=== PATIENT | male | born 1950 | race Caucasian/White ===

== ENCOUNTER → 2024-03-25 | Outpatient (CLI) | payer MEDICARE ==
[2024-03-25 10:56] LABS: African American GFR (CKD) 53 (>60 ml/min/1.73 sqM); Blood Urea Nitrogen 24 mg/dL (9-20); Non-African American GFR(CKD) 46 (>60 ml/min/1.73 sqM)
--- NOTE | 2024-03-25 11:21 | CT ---
EXAMINATION TYPE: CT chest w con CT DLP: 283.6 mGycm, Automated exposure control for dose reduction was used. DATE OF EXAM: 03/25/2024 11:14 AM COMPARISON: CT lung dose 11/12/2023. CLINICAL INDICATION:Male, 73 years old with history of R91.1 SOLITARY PULMONARY NODULE; PHH, SOLITARY PULMONARY NODULE TECHNIQUE: Multiple axial images were obtained through the chest following the administration of 100 cc of Isovue 300. . Coronal and sagittal reformats reviewed. FINDINGS: LUNGS/ PLEURA: No pleural effusion or pneumothorax. Bilateral upper lobe paraseptal emphysematous cj nges. Bibasilar dependent atelectasis. Right lower lobe linear atelectasis. Minimal biapical pleural -parenchymal scarring. Stable lateral right upper lobe 3.5 mm pulmonary nodule (series 4, image 16). Stable left lower lobe posterior 7.4 mm pulmonary nodule (series 4, image 49). No new or enlarging pu lmonary nodules. AIRWAY: Patent and unremarkable.. HEART: Size within normal limits. No pericardial effusion. MEDIASTINUM: No evidence of adenopathy. VASCULATURE: No aortic aneurysm. MUSCULOSKELETAL: No acute osseous abnormalities. Multilevel anterior osteophytosis. SOFT TISSUES/LYMPH NODES: Bilateral gynecomastia. LOWER NECK: No significant findings. UPPER ABDOMEN: No significant findings. IMPRESSION: Stable couple pulmonary nodules with largest measuring up to 7.4 mm. No new or enlarging pulmonary no dules. Follow-up CT chest in 6-12 months is recommended.
== END | disposition home or self-care (01) ==
LOC: RADCTMAIN 10:02
PROVIDERS: ATTEND Internal Medicine Critical Care Medicine
DX: R91.8 Other nonspecific abnormal finding of lung field (principal); R91.1 Solitary pulmonary nodule
CPT/HCPCS: 82565; 84520; 71260; 36415; Q9967

== ENCOUNTER → 2024-12-08 | Outpatient (CLI) | payer MEDICARE ==
[2024-12-08 13:10] LABS: African American GFR (CKD) 46 (>60 ml/min/1.73 sqM); Blood Urea Nitrogen 29 mg/dL (9-20); Non-African American GFR(CKD) 40 (>60 ml/min/1.73 sqM)
--- NOTE | 2024-12-08 14:07 | CT ---
EXAMINATION TYPE: CT chest w con CT DLP: 269.7 mGycm, Automated exposure control for dose reduction was used. DATE OF EXAM: 12/08/2024 1:46 PM COMPARISON: CT chest 03/25/2024, CT low-dose lung 11/12/2023 CLINICAL INDICATION:Male, 74 years old with history of R91.1 SOLITARY PULMONARY NODULE; PHH, LUNG NOD ULE TECHNIQUE: Multiple axial images were obtained through the chest following the administration of 100 cc of Isovue 300. . Coronal and sagittal reformats reviewed. FINDINGS: LUNGS/ PLEURA: No pleural effusion or pneumothorax. Bilateral upper lobe paraseptal emphysematous cj nges. Bibasilar dependent atelectasis. Right lower lobe linear atelectasis. Minimal biapical pleural -parenchymal scarring. Stable lateral right upper lobe 2.5 mm pulmonary nodule (series 4, image 20). Stable left lower lobe posterior 7.2 mm pulmonary nodule (series 4, image 45). Stable right lower lob e superior segment 2.2 mm pulmonary nodule (series 4, image 27). Stable anterior right midlung 3.8 mm pulmonary nodule (series 4, image 27). No new or enlarging pulmonary nodules. AIRWAY: Patent and unremarkable. HEART: Size within normal limits. No pericardial effusion. Minimal coronary arterial calcifications. MEDIASTINUM: No evidence of adenopathy. VASCULATURE: No aortic aneurysm. Mild atherosclerotic calcification of the aorta and its branches. MUSCULOSKELETAL: No acute osseous abnormalities. Multilevel anterior osteophytosis. SOFT TISSUES/LYMPH NODES: Bilateral gynecomastia. LOWER NECK: No significant findings. UPPER ABDOMEN: Bulky appearance to the spleen. IMPRESSION: Stable pulmonary nodules dating back to 11/12/2023 CT. No new or enlarging pulmonary nodules. Follow-u p CT chest in 12 months is recommended to establish stability for 2 years. [facility], , 12/08/2024 2:05 PM
== END | disposition home or self-care (01) ==
LOC: RADCTMAIN 12:36
PROVIDERS: ATTEND Internal Medicine Critical Care Medicine
DX: R91.1 Solitary pulmonary nodule (principal); R91.8 Other nonspecific abnormal finding of lung field
CPT/HCPCS: 82565; 84520; 71260; 36415; Q9967